=== PATIENT | male | born 1940 | race American Indian/Alaskan Native ===

== ENCOUNTER 2016-09-20 06:32 | Day surgery (SDC) | payer MEDICARE ==
[2013-07-30 11:55] VITALS: BMI 26.6
[2016-09-20] MEDS ORDERED: Propofol 10 mg/ml Inj (20 ML) ONE (08:01)
[2016-09-20] MEDS ORDERED: Lidocaine Hydrochloride 5 ML INJ ONE (08:02)
[2016-09-20] MEDS ORDERED: Lactated Ringer's 500 ML IV ONE ×2 (08:06)
--- NOTE | 2016-09-20 08:12 | CP.SDSHP ---
Same Day Surgery H & P - History Proposed Procedure: EGD with biopsy Pre-Op Diagnosis: Abdominl pain - Previous Medical/Surgical History Cardiac: Hypertension Comments: Prostate CA Previous Surgical History: Carpal Tunnel. Epidural - Allergies Allergies: Allergies No Known Allergies Allergy (Verified 09/20/16 06:57) - Current Medications Current Medications: reviewed, per reconciliation - Physical Exam General Appearance: wdwn nad Vital Signs: Vital Signs 09/20/16 06:45 Temperature 97.3 F L Pulse Rate 52 L Respiratory 19 Rate Blood Pressure 126/86 O2 Sat by Pulse 100 Oximetry Mental Status: Alert & Oriented x3 Heart: WNL Lungs: WNL GI: WNL - {Optional Preform as Required} Abdomen: WNL - Impression Impression: Abdominal pain Pt. Evaluated Today:Candidate for Anesthesia & Procedure: Yes - Date & Time Date: 09/20/16 Time: 08:11 Short Stay Discharge - Short Stay Discharge Admitting Diagnosis/Reason for Visit: ESOPHAGEAL REFLUX Disposition: HOME/ ROUTINE Referrals: Kassandra Deleon MD [Primary Care Provider] -
[2016-09-20] MEDS ORDERED: Lactated Ringer's 500 ML IV SCH (08:15)
[2016-09-20 08:53] VITALS: O2SAT 100
[2016-09-20 09:46] VITALS: BP 126/74; PULSE 62; RESP 12; TEMP 97.1
== END 2016-09-20 09:45 | disposition home or self-care (01) ==
LOC: C.ENDO 06:32
PROVIDERS: ATTEND Internal Medicine Gastroenterology
DX: K21.9 Gastro-esophageal reflux disease without esophagitis (principal); K29.60 Other gastritis without bleeding; I10 Essential (primary) hypertension
CPT/HCPCS: 43239; 88305; J2704; J3010; J7120

== ENCOUNTER 2017-05-09 06:50 | Day surgery (SDC) | payer MEDICARE, SELFPAY ==
[2013-07-30 11:55] VITALS: BMI 26.6
[2017-05-09] MEDS ORDERED: Propofol 10 mg/ml Inj (20 ML) ONE (08:45)
[2017-05-09] MEDS ORDERED: Lactated Ringer's 500 ML IV SCH (08:45)
[2017-05-09] MEDS ORDERED: Lactated Ringer's 1,000 ML IV ONE (08:53)
--- NOTE | 2017-05-09 09:05 | CP.SDSHP ---
Same Day Surgery H & P - History Proposed Procedure: Colonoscopy Pre-Op Diagnosis: Screening exam - Previous Medical/Surgical History Cardiac: Hypertension, Other (hyperlipidemia) Misc: Other (Prostate cancer) Previous Surgical History: Carpal Tunnel. Epidural - Allergies Allergies: Allergies No Known Allergies Allergy (Verified 09/20/16 06:57) - Current Medications Current Medications: reviewed, per reconciliation - Physical Exam General Appearance: wdwn nad Vital Signs: Vital Signs 05/09/17 05/09/17 07:12 09:01 Temperature 97.8 F 97.8 F Pulse Rate 73 73 Respiratory 19 19 Rate Blood Pressure 159/91 H 159/91 H O2 Sat by Pulse 97 97 Oximetry Mental Status: Alert & Oriented x3 Heart: WNL Lungs: WNL GI: WNL - {Optional Preform as Required} Abdomen: WNL - Impression Impression: Screening colonoscopy Pt. Evaluated Today:Candidate for Anesthesia & Procedure: Yes - Date & Time Date: 05/09/17 Time: 09:05 Short Stay Discharge - Short Stay Discharge Admitting Diagnosis/Reason for Visit: ENCOUNTER FOR SCREENING FOR MALIGNANT NEOPLASM OF Disposition: HOME/ ROUTINE
[2017-05-09] MEDS ORDERED: Lidocaine Hydrochloride 5 ML INJ ONE (09:09)
[2017-05-09 09:37] VITALS: RESP 12; TEMP 97.3; O2SAT 100
[2017-05-09 10:01] VITALS: BP 129/65; PULSE 55
== END 2017-05-09 10:15 | disposition home or self-care (01) ==
LOC: C.ENDO 06:50
PROVIDERS: ATTEND Internal Medicine Gastroenterology
DX: Z12.11 Encounter for screening for malignant neoplasm of colon (principal); I10 Essential (primary) hypertension; E78.5 Hyperlipidemia, unspecified; Z85.46 Personal history of malignant neoplasm of prostate; K57.30 Diverticulosis of large intestine without perforation or abscess without bleeding; K64.8 Other hemorrhoids
CPT/HCPCS: 45378; J2704; J3010; J7120

== ENCOUNTER 2017-06-14 14:14 | Emergency (ER) | payer MEDICARE, SELFPAY ==
[2017-06-14 14:15] VITALS: BMI 26.6
[2017-06-14 14:30] VITALS: RESP 20
[2017-06-14] MEDS ORDERED: Iohexol 240 (50 ml) PO STA (15:53)
[2017-06-14] MEDS ORDERED: Sodium Chloride 0.9% 1,000 ML IV ONE (15:53)
[2017-06-14 16:27] LABS: BASO # 0.1 K/uL (0.0-0.2); BASO % 0.8 % (0.0-2.0); EOS # 0.2 K/uL (0.0-0.7); EOS % 2.2 % (0.0-4.0); HEMOGLOBIN 13.3 g/dL (12.0-18.0); LYMPH # 1.1 K/uL (1.0-4.3); LYMPH % 13.5 % (20.0-40.0); MEAN CORPUSCULAR HEMOGLOBIN 26.5 pg (27.0-31.0); MEAN CORPUSCULAR HGB CONC 32.2 g/dL (33.0-37.0); MEAN PLATELET VOLUME 8.8 fL (7.2-11.7); MONO # 0.5 K/uL (0.0-0.8); MONO % 5.6 % (0.0-10.0); NEUT # 6.4 K/uL (1.8-7.0); NEUT % 77.9 % (50.0-75.0); NRBC % 0.1 % (0.0-2.0); RBC 5.02 Mil/uL (4.40-5.90); RED CELL DISTRIBUTION WIDTH 14.6 % (11.5-14.5); WHITE BLOOD COUNT 8.3 K/uL (4.8-10.8)
[2017-06-14 16:30] LABS: SQUAMOUS EPITHIAL < 1 /hpf (0-5); URINE BILIRUBIN NEGATIVE (NEGATIVE); URINE BLOOD NEGATIVE (NEGATIVE); URINE CLARITY Clear (Clear); URINE COLOR Straw (YELLOW); URINE GLUCOSE (UA) NORMAL (Normal); URINE LEUKOCYTE ESTERASE NEG Leu/uL (Negative); URINE PROTEIN NEGATIVE (NEGATIVE); URINE UROBILINOGEN NORMAL mg/dL (0.2-1.0)
[2017-06-14 16:33] LABS: MEAN CELL VOLUME 82.2 fL (80.0-94.0)
--- NOTE | 2017-06-14 16:33 | C.PDOC ---
History Of Present Illness 76 y/o male presents to ED sent by PMD for evaluation on black stool and abdominal pain for "several days". Patient states he has taken Pepto bismol with no improvement and reports last bowel movement earlier today. Patient denies fever, chills, nausea, vomiting, diarrhea or any other complaints at this time. Time Seen by Provider: 06/14/17 15:36 Chief Complaint (Nursing): GI Problem History Per: Patient History/Exam Limitations: no limitations Onset/Duration Of Symptoms: Days Current Symptoms Are (Timing): Still Present Location Of Pain/Discomfort: Diffuse Past Medical History Reviewed: Historical Data, Nursing Documentation, Vital Signs Vital Signs: Last Vital Signs Temp 98.4 F 06/14/17 18:02 Pulse 82 06/14/17 18:02 Resp 20 06/14/17 18:02 BP 142/78 06/14/17 18:02 Pulse Ox 97 06/17/17 22:06 - Medical History PMH: HTN, Hypercholesterolemia Surgical History: Endoscopy - [facility] Procedures INJECT/INFUSE ELECTROLYT (10/04/12) INJECT/INFUSE NEC (04/19/13) OTH & OPEN REPAIR DIRECT INGUINAL HERNIA W GRAFT OR PROSTH (08/04/13) Family History: States: No Known Family Hx - Social History Hx Tobacco Use: No Hx Alcohol Use: No Hx Substance Use: No - Immunization History Hx Tetanus Toxoid Vaccination: No Hx Influenza Vaccination: Yes Hx Pneumococcal Vaccination: No Review Of Systems Constitutional: Negative for: Fever, Chills Gastrointestinal: Positive for: Abdominal Pain. Negative for: Nausea, Vomiting , Constipation Skin: Negative for: Rash Physical Exam - Physical Exam Appears: Non-toxic, No Acute Distress Skin: Warm, Dry, No Rash Head: Atraumatic, Normacephalic Oral Mucosa: Moist Neck: Normal ROM, Supple Cardiovascular: Rhythm Regular Respiratory: Normal Breath Sounds, No Rales, No Rhonchi, No Wheezing Gastrointestinal/Abdominal: Soft, Tenderness (LLQ), No Guarding, No Rebound, Other (Abdomen exam limited secondary to patient being sensitive to light touch from umbilicus distally ) Rectal: No Maroon Stool, No Blood Streaked Stool, No Hemorrhoids, Other (Black soft stool) Back: No CVA Tenderness Extremity: Normal ROM, Capillary Refill (<2 seconds) Neurological/Psych: Oriented x3, Normal Speech ED Course And Treatment - Laboratory Results Result Diagrams: 06/14/17 16:22 06/14/17 16:22 O2 Sat by Pulse Oximetry: 97 (RA) Pulse Ox Interpretation: Normal Medical Decision Making Medical Decision Making: pt with normal labs, guaiac negative, ct abdomen neg for acute pathology. pt advised to stop taking pepto bismol. f/u gi. Disposition Counseled Patient/Family Regarding: Studies Performed, Diagnosis, Need For Followup - Disposition Referrals: Behzad Juárez MD [Staff Provider] - Disposition: HOME/ ROUTINE Disposition Time: 19:19 Condition: GOOD Additional Instructions: Please follow up with your doctor and with Dr Juárez (gi doctor) or with GI doctor of your choice in the next few days. Please do not take any more Pepto Bismol. Bring lab results and your ct scan report when you see your doctors. Return to ER for any worse symptoms. Instructions: Acute Abdomen (Belly Pain), Adult (DC) Forms: [facility] (Polish), General Discharge Instructions - Clinical Impression Clinical Impression: Abdominal pain - PA / [employer] / Resident Statement MD/DO has reviewed & agrees with the documentation as recorded. - Scribe Statement The provider has reviewed the documentation as recorded by the Borisibscott Tee All medical record entries made by the Borisibscott were at my direction and personally dictated by me. I have reviewed the chart and agree that the record accurately reflects my personal performance of the history, physical exam, medical decision making, and the department course for this patient. I have also personally directed, reviewed, and agree with the discharge instructions and disposition.
[2017-06-14 16:38] LABS: PROTHROMBIN TIME 11.2 SECONDS (9.7-12.2)
[2017-06-14] MEDS ORDERED: Iohexol 240 (50 ml) ONE (16:38)
[2017-06-14 16:46] LABS: ALB/GLOB RATIO 1.2 (1.0-2.1); ALBUMIN 3.8 g/dL (3.5-5.0); ALT/SGPT 21 U/L (21-72); AST/SGOT 25 U/L (17-59); BLOOD UREA NITROGEN 13 mg/dL (9-20); CALCIUM 8.9 mg/dl (8.6-10.4); GFR AFRICAN-AMERICAN > 60; GFR NON-AFRICAN AMERICAN > 60
[2017-06-14] MEDS ORDERED: Iohexol 300 100 ML IJ ONE (17:17)
[2017-06-14 18:03] VITALS: BP 142/78; PULSE 82; TEMP 98.4
--- NOTE | 2017-06-14 18:23 | CT ---
PROCEDURE: CT scan of the abdomen and pelvis dated 06/14/17 HISTORY: GI bleeding COMPARISON: No prior study available comparison TECHNIQUE: Contiguous axial images of the abdomen and pelvis performed following oral and intravenous injection of approximately 100 cc Omnipaque 300 contrast material. Additional 2 dimensional sagittal and coronal reformats provided given. . Radiation dose: Total exam DLP = This CT exam was performed using one or more of the following dose reduction techniques: Automated exposure control, adjustment of the mA and/or kV according to patient size, and/or use of iterative reconstruction technique. FINDINGS: LOWER THORAX: Lung bases clear. No infiltrate effusion or basilar pneumothorax. There is a tiny hiatal hernia. Heart size appears within range of normal. No significant pericardial effusion. LIVER: Liver demonstrates normal size measuring approximately 14.4 cm in CC dimension. Mid. Minor diffuse fatty hepatic infiltration. There is a small approximately 10.6 mm elliptical shaped low-attenuation focus seen superior aspect lobe bordering the diaphragmatic surface which could represent a small cyst with Hounsfield units estimated approximately minus 9.85. GALLBLADDER AND BILE DUCTS: Gallbladder appears incompletely distended likely due to nonfasting state. No obvious intraluminal gallbladder calculi. PANCREAS: Pancreas appears atrophic and fatty replaced. No obvious pancreatic masses or collections SPLEEN: Spleen exhibits normal size and attenuation pattern without mass collection or calcification. ADRENALS: Mildly enlarged adrenal glands left greater than right. KIDNEYS AND URETERS: The kidneys demonstrate symmetric nephrograms. No evidence of nephrolithiasis or hydronephrosis. BLADDER: Urinary bladder appears physiologically distended. No evidence of intraluminal urinary bladder calculi. REPRODUCTIVE: Prostate gland measures approximately 3.7 cm in transverse dimension. APPENDIX: Appendix not seen with complete certainty however no obvious inflammatory changes right lower quadrant of the abdomen. The BOWEL: Evaluation of the bowel slightly limited due to incomplete opacification. Stomach is distended with oral contrast material and a small amount of air. Visualized loops of small bowel exhibit normal contour and caliber. No evidence of acute mechanical small bowel obstruction with oral contrast material seen extending into the large bowel of. Moderate amount of stool is also present suggesting mild fecal retention/ constipation. Diverticulosis however no definitive evidence of acute diverticulitis PERITONEUM: No evidence of free or loculated fluid collections. No gross free intraperitoneal air. LYMPH NODES: Unremarkable. No enlarged lymph nodes. VASCULATURE: Unremarkable. No aortic aneurysm. BONES: Multilevel degenerative spondylosis of the lower thoracic and lumbar spine. No acute compression fractures no retropulsed fragments. . Probable tiny bone island or osteoma within the left femoral head and right inferior pelvis. OTHER FINDINGS: None. IMPRESSION: Mild fatty hepatic infiltration. Probable small cyst left lobe liver as described. Diverticulosis however no definitive radiographic evidence of acute diverticulitis so far as can be seen.
[2017-06-14 19:19] VITALS: O2SAT 97
== END 2017-06-14 20:17 | disposition home or self-care (01) ==
LOC: C.ER 14:14
DX: R10.32 Left lower quadrant pain (principal)
CPT/HCPCS: 74177; 80053; 81001; 85025; 85610; 85730; 99284; G0328; J7040; Q9966; Q9967

== ENCOUNTER 2017-06-26 07:46 | Day surgery (SDC) | payer MEDICARE, SELFPAY ==
[2017-06-25 13:54] VITALS: BMI 24.3
--- NOTE | 2017-06-26 09:18 | CP.SDSHP ---
Same Day Surgery H & P - History Proposed Procedure: EGD Pre-Op Diagnosis: epigastric pain. melena - Previous Medical/Surgical History Cardiac: Hypertension (hyperlipidemia, ) Neuro: Headaches Misc: Other (Prostate Cancer S/P XRT, Fatty Liver) Pain: 2.Mild Pain - Allergies Allergies: Allergies No Known Allergies Allergy (Verified 06/26/17 08:12) - Physical Exam Vital Signs: Vital Signs 06/26/17 07:55 Temperature 97.7 F Pulse Rate 62 Respiratory 19 Rate Blood Pressure 143/82 O2 Sat by Pulse 100 Oximetry Mental Status: Alert & Oriented x3 Neuro: WNL Heart: WNL Lungs: WNL GI: WNL - Impression Impression: epigastric pain. melena Pt. Evaluated Today:Candidate for Anesthesia & Procedure: Yes - Date & Time Date: 06/26/17 Time: 09:19 Short Stay Discharge - Short Stay Discharge Admitting Diagnosis/Reason for Visit: HEARTBURN / GASTROINTESTINAL HERNIA Disposition: HOME/ ROUTINE
[2017-06-26] MEDS ORDERED: Pantoprazole 40 mg EC Tab PO STA (09:20)
[2017-06-26] MEDS ORDERED: Propofol 10 mg/ml Inj (20 ML) ONE (09:23)
[2017-06-26 11:11] VITALS: RESP 18; TEMP 97.6; O2SAT 100
[2017-06-26 11:17] VITALS: BP 118/75; PULSE 62
== END 2017-06-26 10:45 | disposition home or self-care (01) ==
LOC: C.ENDO 07:46
PROVIDERS: ATTEND Internal Medicine Gastroenterology
DX: R10.13 Epigastric pain (principal); R12 Heartburn; K92.1 Melena; E78.5 Hyperlipidemia, unspecified; I10 Essential (primary) hypertension; K21.0 Gastro-esophageal reflux disease with esophagitis; K29.70 Gastritis, unspecified, without bleeding; Z85.46 Personal history of malignant neoplasm of prostate; K44.9 Diaphragmatic hernia without obstruction or gangrene
CPT/HCPCS: 43239; 88305; 88312; 88313; 88342; J2704